=== PATIENT | male | born 1990 | race Two or more races ===

== ENCOUNTER 2021-04-09 03:43 | Emergency (ER) | payer BC ==
[2021-04-09] MEDS ORDERED: Cyclobenzaprine 10 MG Tab PO ONE (04:36)
[2021-04-09] MEDS ORDERED: Ketorolac 30 MG/ML SDV IM ONE (04:44)
[2021-04-09] MEDS ORDERED: Acetaminophen 500 MG Tab PO ONE (04:45)
== END 2021-04-09 05:40 | disposition home or self-care (01) ==
LOC: LL.ED 03:43
DX: M62.830 Muscle spasm of back (principal); Z72.0 Tobacco use
CPT/HCPCS: 72072; 96372; 99283-25; A9270-GY; J1885